=== PATIENT | male | born 1960 | race Caucasian/White ===

== ENCOUNTER 2019-10-13 16:45 | Emergency (ER) | payer OTHER ==
[2019-10-13 17:14] VITALS: BP 139/73; PULSE 95
[2019-10-13] MEDS ORDERED: Albuterol/Ipratropium 3.0-0.5 MG/3 ML Neb Soln NEB ONE (17:52)
[2019-10-13] MEDS ORDERED: Acetaminophen 325 MG Tab PO ONE (17:52)
--- NOTE | 2019-10-13 17:59 | EDM.PDOC ---
ED HPI GENERAL MEDICAL PROBLEM - General Chief Complaint: Respiratory Problem Stated Complaint: COUGH AND CHILLS Time Seen by Provider: 10/13/19 17:25 Source of Information: Reports: Patient, RN Notes Reviewed History Limitations: Reports: No Limitations - History of Present Illness INITIAL COMMENTS - FREE TEXT/NARRATIVE: Patient is a 59-year-old male who presents to the ED for the evaluation of a cough/body aches/chills. Patient notes that he has had a cough for about 1 month, it is been slightly productive at times, but he does not usually get a lot of sputum up with a cough. He does note that he has had increased chills since Sunday. He does not know if he has gotten the influenza vaccine, but he states he does go to the [place] for healthcare [facility], and believes that he probably did get the vaccine but just cannot remember. The patient states that he is not taking any sort of [id number] medications for this. He does note that he is just feels generally tired, and not able to stay awake much at all, having generalized body aches and chills. He does have a history of COPD/ emphysema, he states he has been using his albuterol inhaler once daily, and his steroid inhaler as directed. Patient notes he has had a previous [place] around 10 years ago. Otherwise he states he has had no surgeries, has no allergies, he is a smoker, with a [id number] history, he denies any drug or alcohol use, and he states his last PFT was quite a few years ago. Patient states that the albuterol inhaler does not seem to really do much. Treatments FIGURE MODEL: Reports: Other (see below) Other Treatments FIGURE MODEL: none Chest Pain Score (Numeric/FACES): 9 Throat Pain Score (Numeric/FACES): 4 - Related Data Allergies Allergy/AdvReac Type Severity Reaction Status Date / Time No Known Allergies Allergy Verified 02/11/19 18:45 Home Meds: Home Meds Fish Oil/Douglass-3 Fatty Acids [Fish Oil 1,000 MG] 1,000 mg PO DAILY 04/17/14 [ History] Multivitamin [Multi-Vitamin Daily] 1 tab PO DAILY 04/17/14 [History] Simvastatin [Zocor] 40 mg PO DAILY 04/17/14 [History] hydroCHLOROthiazide [Hydrochlorothiazide] 12.5 mg PO DAILY 04/17/14 [History] Aspirin 81 mg PO DAILY 02/11/19 [History] Clopidogrel [Plavix] 75 mg PO DAILY 02/12/19 [History] Famotidine [Pepcid] 20 mg PO BEDTIME #20 tab 02/12/19 [Rx] Vitamin B Complex 1 cap PO DAILY 02/12/19 [History] Oseltamivir [Tamiflu] 75 mg PO BID #10 cap 10/13/19 [Rx] predniSONE 20 mg PO ASDIRECTED #15 tab 10/13/19 [Rx] Past Medical History HEENT History: Reports: Cataract, Impaired Vision (Wears glasses), Retinal Detachment Cardiovascular History: Reports: High Cholesterol, [place] (2010), Stents Respiratory History: Reports: COPD (emphysema) Musculoskeletal History: Reports: Fracture (Left middle finger) - Infectious Disease History Infectious Disease History: Reports: Chicken Pox - Past Surgical History HEENT Surgical History: Reports: Cataract Surgery, Detached Retina Social & Family History - Family History Family Medical History: Noncontributory - Tobacco Use Smoking Status *Q: Current Every Day Smoker Years of Tobacco use: 45 Packs/Tins Daily: 1 - Caffeine Use Caffeine Use: Reports: None Caffeine Use Comment: 1-2 cans a day - Alcohol Use Alcohol Use History: No - Recreational Drug Use Recreational Drug Use: No ED ROS GENERAL - Review of Systems Review Of Systems: See Below Constitutional: Reports: Fever, Chills, Malaise (generalized) Respiratory: Reports: Cough, Sputum. Denies: Shortness of Breath Cardiovascular: Reports: Chest Pain (generalized chest discomfort from coughing) GI/Abdominal: Denies: Abdominal Pain, Diarrhea, Nausea, Vomiting Neurological: Denies: Headache ED EXAM, GENERAL - Physical Exam Exam: See Below Exam Limited By: No Limitations General Appearance: Alert, WD/WN, No Apparent Distress Eye Exam: Bilateral Eye: EOMI, Normal Inspection, PERRL Ears: Normal External Exam Nose: Normal Inspection Throat/Mouth: Normal Inspection, Normal Lips, Normal Teeth, Normal Gums, Normal Oropharynx, Normal Voice, No Airway Compromise Head: Atraumatic, Normocephalic Neck: Normal Inspection Respiratory/Chest: No Respiratory Distress, Lungs Clear, No Accessory Muscle Use , Chest Non-Tender, Decreased Breath Sounds (diminished bilaterally). No: Rhonchi, Wheezing Cardiovascular: Normal Peripheral Pulses, Regular Rate, Rhythm, No Murmur GI/Abdominal: Normal Bowel Sounds, Soft, Non-Tender, No Distention, No Mass Extremities: Normal Inspection, Normal Capillary Refill Neurological: Alert, Oriented, Normal Cognition, No Motor/Sensory Deficits Psychiatric: Normal Affect, Normal Mood Skin Exam: Warm, Dry, Intact, Normal Color, No Rash Course - Vital Signs Last Recorded V/S: Last Vital Signs Temp 102.2 F H 10/13/19 17:12 Pulse 95 10/13/19 17:12 Resp BP 139/73 10/13/19 17:12 Pulse Ox 97 10/13/19 17:52 - Orders/Labs/Meds Orders: Active Orders 24 hr Category Date Time Status RT Aerosol Therapy [RC] ASDIRECTED Care 10/13/19 17:52 Ordered INFLUENZA A+B AG SCREEN [RM] Stat Lab 10/13/19 17:40 Ordered Isolation [COMM] Routine Oth 10/13/19 17:40 Ordered Labs: Laboratory Tests 10/13/19 10/13/19 Range/Units 17:59 17:59 WBC 8.26 (4.23-9.07) K/mm3 RBC 5.83 (4.63-6.08) M/mm3 Hgb 17.1 (13.7-17.5) gm/dl Hct 50.6 (40.1-51.0) % MCV 86.8 (79.0-92.2) fl MCH 29.3 (25.7-32.2) pg MCHC 33.8 (32.2-35.5) g/dl RDW Std Deviation 44.7 H (35.1-43.9) fL Plt Count 233 (163-337) K/mm3 MPV 11.1 (9.4-12.3) fl Neutrophils % (Manual) 68 H (40-60) % Band Neutrophils % 0 (0-10) % Lymphocytes % (Manual) 17 L (20-40) % Atypical Lymphs % 4 % Monocytes % (Manual) 10 (2-10) % Eosinophils % (Manual) 1 (0.8-7.0) % Basophils % (Manual) 0 L (0.2-1.2) Platelet Estimate Adequate RBC Morph Comment Normal Sodium 140 (136-145) mEq/L Potassium 4.0 (3.5-5.1) mEq/L Chloride 103 (98-107) mEq/L Carbon Dioxide 29 (21-32) mEq/L Anion Gap 12.0 (5-15) BUN 14 (7-18) mg/dL Creatinine 1.2 (0.7-1.3) mg/dL Est Cr Clr Drug Dosing 66.28 mL/min Estimated GFR (MDRD) > 60 (>60) mL/min BUN/Creatinine Ratio 11.7 L (14-18) Glucose 87 (74-106) mg/dL Calcium 8.6 (8.5-10.1) mg/dL Total Bilirubin 0.8 (0.2-1.0) mg/dL AST 12 L (15-37) U/L ALT 19 (16-63) U/L Alkaline Phosphatase 109 (46-116) U/L Total Protein 7.1 (6.4-8.2) g/dl Albumin 3.8 (3.4-5.0) g/dl Globulin 3.3 gm/dL Albumin/Globulin Ratio 1.2 (1-2) Meds: Medications Discontinued Medications Generic Name Dose Route Start Last Admin Trade Name Jesus Albertoq PRN Reason Stop Dose Admin Acetaminophen 975 mg 10/13/19 17:52 10/13/19 18:18 Tylenol PO 10/13/19 17:53 975 mg NOW ONE Administration Albuterol/Ipratropium 3 ml 10/13/19 17:52 10/13/19 18:23 Duoneb 3.0-0.5 Mg/3 Ml NEB 10/13/19 17:53 3 ml ONETIME ONE Administration - Re-Assessments/Exams Free Text/Narrative Re-Assessment/Exam: 10/13/19 18:03 Patient presents to the ED for his ongoing cough/fever/chills. Influenza swab was obtained at time of triage, CBC, CMP, chest x-ray will be obtained and a DuoNeb will be given for initial management. 10/13/19 18:49 The patient's lab work is unremarkable, influenza swab was positive for influenza A. Chest x-ray shows no sign of any consolidative or infiltrative process. I will discharge patient home with Tamiflu, and prednisone, and directions to use his inhaler more frequently. Departure - Departure Time of Disposition: 18:49 Disposition: Home, Self-Care 01 Condition: Fair Clinical Impression: Influenza A, COPD exacerbation - Discharge Information *PRESCRIPTION DRUG MONITORING PROGRAM REVIEWED*: No *COPY OF PRESCRIPTION DRUG MONITORING REPORT IN PATIENT CHAS: No Prescriptions: Oseltamivir [Tamiflu] 75 mg PO BID #10 cap predniSONE 20 mg PO ASDIRECTED #15 tab Instructions: Influenza, Adult, [id number], Chronic Obstructive Pulmonary Disease Exacerbation, [id number] Referrals: Mary Mcgregor, [employer] [Primary Care Provider] - Forms: ED Department Discharge Additional Instructions: You were evaluated in the ER today regarding your fever, and cough. Laboratory evaluation was unremarkable, but you did test positive for influenza A at today's visit. Your chest x-ray also showed no sign of a consolidation or infiltrate, there is no sign of a pneumonia on the x-ray. Due to your diagnosis of COPD however you will be started on a course of prednisone to help relieve the cough, and have been started on Tamiflu, for influenza diagnosis. These medications were electronically prescribed to the [place] [facility] located in the [facility]. Recommend you take your albuterol inhaler as follows: 2 puffs 4 times a day for the next 3 days, 2 puffs 3 times a day for the next 3 days, 2 puffs 2 times a day, until you need to use this on more of an as needed basis. Please take 500 mg Tylenol or 600 mg ibuprofen every 6 hours as needed for further fever/pain relief. 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 Please return to the ED if your symptoms change or worsen. Sepsis Event Note - Evaluation Sepsis Screening Result: No Definite Risk - Focused Exam Vital Signs: Vital Signs Temp Pulse BP Pulse Ox Pulse Ox 10/13/19 17:52 97 10/13/19 17:12 102.2 F H 95 139/73 96 Date Exam was Performed: 10/13/19 Time Exam was Performed: 18:49 - My Orders Last 24 Hours: My Active Orders 10/13/19 17:40 INFLUENZA A+B AG SCREEN [RM] Stat Isolation [COMM] Routine 10/13/19 17:52 RT Aerosol Therapy [RC] ASDIRECTED - Assessment/Plan Last 24 Hours: My Active Orders 10/13/19 17:40 INFLUENZA A+B AG SCREEN [RM] Stat Isolation [COMM] Routine 10/13/19 17:52 RT Aerosol Therapy [RC] ASDIRECTED
--- NOTE | 2019-10-13 18:22 | CR ---
Chest: 2 views of the chest were obtained. Comparison: Prior chest x-ray of 02/11/19. Heart size and mediastinum are within normal limits. Lungs are clear with no acute parenchymal change. Visualized osseous structures show nothing acute. Impression: 1. Nothing acute is appreciated on 2 view chest x-ray. Diagnostic code #1 Study was dictated in MDT
== END 2019-10-13 19:10 | disposition home or self-care (01) ==
LOC: JD.ED 16:45
DX: J10.1 Influenza due to other identified influenza virus with other respiratory manifestations (principal); J44.1 Chronic obstructive pulmonary disease with (acute) exacerbation; I25.2 Old myocardial infarction; E78.00 Pure hypercholesterolemia, unspecified; F17.210 Nicotine dependence, cigarettes, uncomplicated; Z79.899 Other long term (current) drug therapy; Z79.82 Long term (current) use of aspirin; Z79.02 Long term (current) use of antithrombotics/antiplatelets
CPT/HCPCS: 36415; 71046; 80053; 85007; 85027; 87804; 94640; 99284; A9270; J7620-GY

== ENCOUNTER 2021-10-01 20:32 | Emergency (ER) | payer OTHER ==
[2021-10-01 20:53] VITALS: BP 158/84; PULSE 78
[2021-10-01] MEDS ORDERED: Albuterol/Ipratropium 3.0-0.5 MG/3 ML Neb Soln NEB ONE ×3 (21:21→23:41)
[2021-10-01] MEDS ORDERED: predniSONE 20 MG Tab PO STA (21:21)
[2021-10-01 21:29] LABS: CORONAVIRUS COVID-19 NAA NEGATIVE (NEGATIVE)
[2021-10-01] MEDS ORDERED: Azithromycin 250 MG Tab PO STA (22:49)
== END 2021-10-02 00:27 | disposition home or self-care (01) ==
LOC: JD.ED 20:32
DX: J44.1 Chronic obstructive pulmonary disease with (acute) exacerbation (principal); I25.2 Old myocardial infarction; E78.00 Pure hypercholesterolemia, unspecified; Z95.5 Presence of coronary angioplasty implant and graft; Z79.82 Long term (current) use of aspirin; Z79.899 Other long term (current) drug therapy; Z72.0 Tobacco use; Z20.822 Contact with and (suspected) exposure to COVID-19
CPT/HCPCS: 0241U; 36415; 71045; 80053; 82803; 85025; 85610; 87651; 93005; 94640; 99285; A9270; J7512; 93010; J7620-GY

== ENCOUNTER 2022-04-17 10:32 | Emergency (ER) | payer OTHER ==
[2022-04-17] MEDS ORDERED: Sodium Chloride 0.9% 10 ML Syringe FLUSH PRN (10:54)
[2022-04-17 11:44] LABS: ESTIMATED GFR 97 mL/min (>60)
[2022-04-17 12:41] VITALS: BP 126/82; PULSE 66
== END 2022-04-17 12:41 | disposition home or self-care (01) ==
LOC: JD.ED 10:32
DX: R07.89 Other chest pain (principal); E78.00 Pure hypercholesterolemia, unspecified; J44.9 Chronic obstructive pulmonary disease, unspecified; I25.2 Old myocardial infarction; Z79.899 Other long term (current) drug therapy
CPT/HCPCS: 36415; 71045; 80053; 83735; 83880; 84484; 85025; 85610; 85730; 93005; 99285; J3490; 93010; 99284

== ENCOUNTER 2022-11-24 13:00 | Emergency (ER) | payer OTHER ==
[2022-11-24 13:20] VITALS: PULSE 145
[2022-11-24] MEDS ORDERED: Lactated Ringers 1,000 ML IV ONE ×2 (14:42→14:43)
[2022-11-24] MEDS ORDERED: Lactated Ringers 1,000 ML IV SCH (14:45)
[2022-11-24] MEDS ORDERED: Iopamidol 755 Mg/ML 100 ML Bottle IVPUSH ONE (15:54)
[2022-11-24] MEDS ORDERED: Sodium Chloride 0.9% 10 ML Syringe FLUSH ONE (15:54)
[2022-11-24] MEDS ORDERED: Sodium Chloride 0.9% 100 ML IV SCH (16:00)
[2022-11-24 16:17] LABS: CORONAVIRUS COVID-19 NAA NEGATIVE (NEGATIVE)
[2022-11-24] MEDS ORDERED: Piperacillin/Tazobactam 4.5 GM in Sodium Chloride 0.9% 100 ML IV ONE (17:02)
[2022-11-24] MEDS ORDERED: Sodium Chloride 0.9% 1,000 ML IV SCH (17:45)
[2022-11-24 18:00] VITALS: BP 122/102
== END 2022-11-24 19:30 ==
LOC: JD.ED 13:00
DX: A41.9 Sepsis, unspecified organism (principal); D49.1 Neoplasm of unspecified behavior of respiratory system; C34.90 Malignant neoplasm of unspecified part of unspecified bronchus or lung; E78.00 Pure hypercholesterolemia, unspecified; J44.9 Chronic obstructive pulmonary disease, unspecified; I25.2 Old myocardial infarction; Z90.2 Acquired absence of lung [part of]; Z87.891 Personal history of nicotine dependence; Z20.822 Contact with and (suspected) exposure to COVID-19
CPT/HCPCS: 0240U; 36415; 71045; 71275; 80053; 81001; 83605; 83735; 83880; 84484; 85007; 85027; 85379; 85610; 85730; 87040; 87086; 87651; 93005; 96361; 96365; 99285; J2543; J3490; J7030; J7120; Q9967; 93010

== ENCOUNTER 2023-02-20 07:06 | Emergency (ER) | payer OTHER ==
[2023-02-20] MEDS ORDERED: Sodium Chloride 0.9% 1,000 ML IV STA (07:51)
[2023-02-20] MEDS ORDERED: Sodium Chloride 0.9% 10 ML Syringe FLUSH PRN (07:51)
[2023-02-20] MEDS ORDERED: Ondansetron 4 MG/2 ML SDV IVPUSH ONE (07:51)
[2023-02-20] MEDS ORDERED: HYDROmorphone 0.5 MG/0.5 ML Syringe IVPUSH ONE (07:52)
[2023-02-20] MEDS ORDERED: Iopamidol 612 MG/ML 100 ML Bottle IVPUSH ONE (08:00)
[2023-02-20] MEDS ORDERED: Sodium Chloride 0.9% 10 ML Syringe FLUSH ONE (08:00)
[2023-02-20 08:06] LABS: APPEARANCE,URINE CLOUDY (Clear); BILIRUBIN,URINE 1+ (Negative); COLOR,URINE AMBER (Yellow); GLUCOSE,URINE NEGATIVE (Negative); KETONES,URINE NEGATIVE (Negative); LEUKOCYTE ESTERASE,URINE NEGATIVE (Negative); NITRITE,URINE NEGATIVE (Negative); OCCULT BLOOD,URINE 2+ (Negative); PH,URINE 5.5 (5.0-8.0); PROTEIN,URINE 2+ (Negative); UROBILINOGEN,URINE 0.2 (0.2-1.0)
[2023-02-20 08:26] LABS: BASOPHILS ABSOLUTE AUTO 0.01 K/mm3 (0.01-0.08); BASOPHILS PERCENT AUTO 0.1 % (0.1-1.2); EOSINOPHILS ABSOLUTE AUTO 0.04 K/mm3 (0.04-0.54); EOSINOPHILS PERCENT AUTO 0.2 (0.8-7.0); HEMATOCRIT 51.8 % (40.1-51.0); HEMOGLOBIN 17.4 gm/dl (13.7-17.5); IMMATURE GRAN ABSOLUTE AUTO 0.04 K/mm3 (0.00-0.10); IMMATURE GRAN PERCENT AUTO 0.2 % (<=1.0); LYMPHOCYTES ABSOLUTE AUTO 1.22 K/mm3 (1.32-3.57); LYMPHOCYTES PERCENT AUTO 6.1 % (21.8-53.1); MEAN CORPUSCULAR HGB CONC 33.6 g/dl (32.2-35.5); MEAN CORPUSCULAR VOLUME 86.3 fl (79.0-92.2); MEAN PLATELET VOLUME 10.6 fl (9.4-12.3); MONOCYTES ABSOLUTE AUTO 0.98 K/mm3 (0.30-0.82); MONOCYTES PERCENT AUTO 4.9 % (5.3-12.2); NEUTROPHILS ABSOLUTE AUTO 17.63 K/mm3 (1.78-5.38); NEUTROPHILS PERCENT AUTO 88.5 % (34.0-67.9); PLATELET COUNT,PLT 257 K/mm3 (163-337); WHITE BLOOD CELL COUNT,WBC 19.92 K/mm3 (4.23-9.07)
[2023-02-20 09:06] LABS: ALBUMIN 3.7 g/dl (3.4-5.0); ANION GAP 11.8 (5-15); BILIRUBIN TOTAL 0.8 mg/dL (0.2-1.0); BUN/CREATININE RATIO 16.4 (14-18); CALCIUM 9.3 mg/dL (8.5-10.1); CREATININE 1.1 mg/dL (0.7-1.3); EST CRCL DRUG DOSING (CG) 69.63 mL/min; POTASSIUM,K 3.8 mEq/L (3.5-5.1); PROTEIN TOTAL,TP 7.3 g/dl (6.4-8.2)
[2023-02-20 09:06] LABS: AMORPHOUS SEDIMENT,URINE MANY /hpf (NOT SEEN); BACTERIA,URINE FEW /hpf (FEW); EPITHELIAL CELLS,URINE 0-5 /hpf (0-5); MUCUS,URINE FEW /hpf (FEW); RBC,URINE 0-5 /hpf (0-5); WBC,URINE 0-5 /hpf (0-5)
[2023-02-20] MEDS ORDERED: Ketorolac 30 MG/ML SDV IVPUSH ONE (10:05)
[2023-02-20 10:46] VITALS: BP 146/61; PULSE 60
== END 2023-02-20 11:00 | disposition home or self-care (01) ==
LOC: JD.ED 07:06
DX: N13.2 Hydronephrosis with renal and ureteral calculous obstruction (principal); I25.2 Old myocardial infarction; J44.9 Chronic obstructive pulmonary disease, unspecified; Z79.899 Other long term (current) drug therapy; Z72.0 Tobacco use
CPT/HCPCS: 36415; 74177; 80053; 81001; 83690; 85025; 96361; 96374; 96375; 99284; J1170; J1885; J2405; J3490; J7030; Q9967

== ENCOUNTER 2024-09-17 09:03 | Day surgery (SDC) | payer OTHER ==
[~2024-09-17 09:03] MED LIST: Sodium Chloride 0.9% 10 ML Syringe FLUSH SCH
[2024-09-17] MEDS: Lactated Ringers 1,000 ML IV SCH (09:30)
[2024-09-17] MEDS ORDERED: Lidocaine 2% 5 ML SDV ONE (09:37)
[2024-09-17] MEDS ORDERED: Propofol 200 MG/20 ML SDV ONE ×3 (09:38→10:33)
[2024-09-17] MEDS: Sodium Chloride 0.9% 10 ML Syringe FLUSH PRN (11:30)
[2024-09-17 11:36] VITALS: BP 110/61; PULSE 72
== END 2024-09-17 11:40 | disposition home or self-care (01) ==
LOC: JD.SDS 09:03
PROVIDERS: ATTEND Surgery
DX: Z12.11 Encounter for screening for malignant neoplasm of colon (principal); D12.3 Benign neoplasm of transverse colon; D12.0 Benign neoplasm of cecum; D12.2 Benign neoplasm of ascending colon; D12.4 Benign neoplasm of descending colon; K64.8 Other hemorrhoids; Z86.0100 Personal history of colon polyps, unspecified; I25.10 Atherosclerotic heart disease of native coronary artery without angina pectoris; E78.5 Hyperlipidemia, unspecified; J43.9 Emphysema, unspecified; E66.9 Obesity, unspecified; I10 Essential (primary) hypertension; Z79.82 Long term (current) use of aspirin; Z79.899 Other long term (current) drug therapy; F17.210 Nicotine dependence, cigarettes, uncomplicated
CPT/HCPCS: 45380; 45385; J1642; J2003; J2704; J7120; 00811

== ENCOUNTER 2025-04-12 20:16 | Emergency (ER) | payer OTHER ==
[2025-04-12 20:41] LABS: BASOPHILS ABSOLUTE AUTO 0.1 K/mm3 (0.0-0.2); BASOPHILS PERCENT AUTO 0.5 % (0.0-1.0); EOSINOPHILS ABSOLUTE AUTO 0.4 K/mm3 (0.0-0.4); EOSINOPHILS PERCENT AUTO 2.9 % (0.0-6.0); IMMATURE GRAN ABSOLUTE AUTO 0.06 K/mm3 (0.00-0.05); IMMATURE GRAN PERCENT AUTO 0.5 % (0.0-0.4); LYMPHOCYTES ABSOLUTE AUTO 3.0 K/mm3 (1.0-4.8); LYMPHOCYTES PERCENT AUTO 25.1 % (24.0-44.0); MEAN PLATELET VOLUME 10.4 fl (9.4-12.4); MONOCYTES ABSOLUTE AUTO 1.0 K/mm3 (0.0-0.8); MONOCYTES PERCENT AUTO 7.9 % (0.0-8.0); NEUTROPHILS ABSOLUTE AUTO 7.6 K/mm3 (1.8-7.7); NEUTROPHILS PERCENT AUTO 63.1 % (41.0-71.0); NRBC ABSOLUTE 0.00 (0.00-0.02); NRBC PERCENT 0.0 % (0.0-0.2); PLATELET COUNT,PLT 204 K/mm3 (150-400); RED BLOOD CELL COUNT 5.22 M/mm3 (4.52-5.90); WHITE BLOOD CELL COUNT,WBC 12.01 K/mm3 (3.9-11.3)
[2025-04-12] MEDS ORDERED: Nitroglycerin 0.4 MG Tab.SL SL PRN (20:54)
[2025-04-12 20:57] LABS: INR 1.01
[2025-04-12 21:11] LABS: A/G RATIO 1.4 (1-2); ALANINE AMINOTRANSFERASE,ALT 25.0 U/L (16-63); ASPARTATE AMNIOTRANSFERASE,AST 10.0 U/L (15-37); BILIRUBIN TOTAL 0.4 mg/dL (0.2-1.0); BLOOD UREA NITROGEN,BUN 10.0 mg/dL (7-18); CARBON DIOXIDE,CO2 29.0 mEq/L (21-32); CHLORIDE,CL 108.0 mEq/L (98-107); CREATINE KINASE,CK 45.0 U/L (39-308); CREATININE 0.9 mg/dL (0.7-1.3); EST CRCL DRUG DOSING (CG) 82.92 mL/min; ESTIMATED GFR 95.0 mL/min (>60); GLUCOSE RANDOM 140.0 mg/dL (70-99); POTASSIUM,K 3.6 mEq/L (3.5-5.1); PROTEIN TOTAL,TP 5.8 g/dl (6.4-8.2); SODIUM,NA 143.0 mEq/L (136-145); TROPONIN I HIGH SENSITIVITY 8.0 pg/mL (<=76)
[2025-04-12 21:26] LABS: ETHANOL BLOOD MEDICAL 0.0 gm% (0.00)
[2025-04-13 00:03] VITALS: BP 141/75; PULSE 68
== END 2025-04-12 23:50 | disposition home or self-care (01) ==
LOC: JD.ED 20:16
DX: I25.118 Atherosclerotic heart disease of native coronary artery with other forms of angina pectoris (principal); Z85.118 Personal history of other malignant neoplasm of bronchus and lung; Z72.0 Tobacco use; J45.909 Unspecified asthma, uncomplicated; Z79.82 Long term (current) use of aspirin; Z79.899 Other long term (current) drug therapy
CPT/HCPCS: 36415; 71045; 80053; 80307; 82550; 83690; 83735; 83880; 84484; 85025; 85610; 93005; 99285; A9270; 93010; 99283